=== PATIENT | male | born 1970 | race Two or more races ===

== ENCOUNTER 2019-09-03 15:38 | Emergency (ER) | payer MEDICAID, OTHER ==
[~2019-09-03] VITALS: Ht 160 cm; Wt 102.5 kg
[2019-09-03 15:51] VITALS: BP 159/106
== END 2019-09-03 16:37 | disposition home or self-care (01) ==
LOC: ER 15:38
DX: I10 Essential (primary) hypertension (principal); Z76.0 Encounter for issue of repeat prescription

== ENCOUNTER 2019-12-26 12:36 | Emergency (ER) | payer MEDICAID ==
[~2019-12-26] VITALS: Ht 160 cm; Wt 98.0 kg
[2019-12-26 13:24] VITALS: BP 147/97
[2019-12-26] MEDS ORDERED: LIDOCAINE 1% HCL (LOCAL ANESTH.) INJ 20ML MDV IJ ONE (13:45)
[2019-12-26] MEDS ORDERED: cefTRIAXone SOD 1,000 MG VL IM ONE (14:00)
[2019-12-26] MEDS ORDERED: IBUPROFEN 800 MG TAB PO ONE (14:15)
== END 2019-12-26 14:28 | disposition home or self-care (01) ==
LOC: ER 12:36
DX: L02.31 Cutaneous abscess of buttock (principal); I10 Essential (primary) hypertension; F17.210 Nicotine dependence, cigarettes, uncomplicated
CPT/HCPCS: 87075; 96372; 99283; J0696; J2001